=== PATIENT | female | born 1955 | race Caucasian/White ===

== ENCOUNTER 2017-11-28 18:45 | Emergency (ER) | payer BC, OTHER ==
[2017-11-28 18:51] VITALS: BP 104/62; PULSE 94; TEMP 97.7; BMI 20.7
== END 2017-11-28 20:02 | disposition left against medical advice (07) ==
LOC: JERFT 18:45
DX: Z53.21 Procedure and treatment not carried out due to patient leaving prior to being seen by health care provider (principal)
CPT/HCPCS: 99281-25